=== PATIENT | female | born 1980 ===

== ENCOUNTER 2017-05-10 11:47 | Outpatient (CLI) | payer OTHER ==
[~2017-05-10 11:47] MED LIST: FOLIC ACID1 MG; PRENATAL TABLE1 EAC3
== END 2017-05-10 12:41 | disposition home or self-care (01) ==
LOC: NST 11:47
DX: Z34.83 Encounter for supervision of other normal pregnancy, third trimester (principal)

== ENCOUNTER 2017-05-10 15:15 | Inpatient (IN) | payer OTHER ==
[~2017-05-10] VITALS: Ht 152.4 cm; Wt 54.4 kg
== END 2017-05-22 11:25 | disposition home or self-care (01) | DRG 766 ==
LOC: LDR 05-19 07:00 → O/R 05-19 08:10 → OB/GYN 05-19 08:10 → LDR 05-19 13:15 → OB/GYN 05-19 14:05
PROVIDERS: Obstetrics & Gynecology
PROC: 0UT70ZZ Resection of Bilateral Fallopian Tubes, Open Approach (ICD-10-PCS; 2017-05-19)
PROC: 4A1HXCZ Monitoring of Products of Conception, Cardiac Rate, External Approach (ICD-10-PCS; 2017-05-19)
PROC: 10D00Z1 Extraction of Products of Conception, Low, Open Approach (ICD-10-PCS; principal; 2017-05-19 07:00)
DX: O34.211 Maternal care for low transverse scar from previous cesarean delivery (principal); Z3A.39 39 weeks gestation of pregnancy; Z30.2 Encounter for sterilization; Z64.1 Problems related to multiparity; Z37.0 Single live birth

== ENCOUNTER 2018-10-25 09:49 | Emergency (ER) | payer OTHER ==
[~2018-10-25] VITALS: Ht 152.4 cm; Wt 56.7 kg
== END 2018-10-25 13:27 | disposition home or self-care (01) ==
LOC: ER 09:49
DX: K52.9 Noninfective gastroenteritis and colitis, unspecified (principal)

== ENCOUNTER 2023-12-14 13:24 | Outpatient (CLI) | payer OTHER | END 2023-12-14 13:32 | disposition home or self-care (01) | LOC: RAD 13:24 | PROVIDERS: ATTEND General Practice | DX: M54.12 Radiculopathy, cervical region (principal) ==